=== PATIENT | female | born 1990 | race Caucasian/White ===

== ENCOUNTER 2017-10-22 21:00 | Emergency (ER) | payer OTHER ==
[2017-10-22] MEDS ORDERED: TORAdol 30 mg Injection IV ONE (22:19)
[2017-10-22 22:27] LABS: BASOPHIL % 0.1 % (0.0-0.4); Basophil (Absolute #) 0.01 (0-0.4); Eosinophil (Absolute #) 0.15 (0-0.5); Granulocyte Absolute (ANC) 11.23 (1.4-6.9); Granulocytes % 72.9 % (36.0-66.0); Hematocrit 40.2 % (35-47); Hemoglobin 13.2 gm/dl (12.0-16.0); Lymphocyte (Absolute #) 3.37 (1.0-4.6); Lymphocytes % 21.9 % (24.0-44.0); Mean Cell Volume 83.4 fl (78-100); Mean Corpuscular Hemoglobin 27.4 pg (26-32); Mean Corpuscular Hgb Concent. 32.8 g/dl (32-36); Mean Platelet Volume 9.2 fl (6-9.5); Monocyte (Absolute #) 0.63 (0.0-1.3); Monocytes % 4.1 % (0.0-12.0); Platelet Count 392 K/mm3 (150-450); Red Blood Count 4.82 M/mm3 (4.1-5.4); Red Cell Distribution Width 14.5 % (11.5-14.0); White Blood Count 15.4 K/mm3 (4.0-10.5)
[2017-10-22 22:31] LABS: ANION GAP 18.2 MEQ/L (5-15); BLOOD UREA NITROGEN 20 mg/dL (7-17); CHLORIDE 105 mmol/L (98-107); Calcium 10.1 mg/dL (8.4-10.2); Carbon Dioxide 23 mmol/L (22-30); Creatinine 1 0.91 mg/dL (0.52-1.04); Glucose 175 mg/dL (74-106); Potassium 4.2 mmol/L (3.5-5.1); SODIUM 142 mmol/L (137-145)
--- NOTE | 2017-10-22 22:31 | ERPHSYRPT ---
- History of Present Illness Time Seen by Provider: 10/22/17 22:15 Source: patient Exam Limitations: no limitations Patient Subjective Stated Complaint: PT CO LLQ AND FLANK PAIN; STARTED IN HER L LOWER BACK EARLIER THIS PM; STATES IT FEELS LIKE A KIDNEY STONE ON THE MOVE; HAS HO STONE APPROX 6 YEARS AGO AND PAIN SIMILAR TO THEN. Triage Nursing Assessment: PT A&O X3; SKIN P, W, & D; AMBULATED TO ROOM PER SELF ; FAMILY AT BEDSIDE. Physician History: patient with history of previous kidney stone, who presents with left flank pain that started at 5 PM today. Patient states symptoms feel similar to previous kidney stone. Patient describe pain as sharp, constant and radiates to the left lower quadrant. Patient also with mild nausea but no vomiting, fever, chills or diaphoresis Timing/Duration: today (5 PM) Method of Injury: other (no injury) Quality: sharp Back Pain Location: paraspinous muscles Severity of Pain-Max: moderate Severity of Pain-Current: mild (x) Modifying Factors: Improves With: nothing Associated Symptoms: nausea, lower back pain (left-sided), No fever, No chills, No sweating, No urinary incontinence, No vomiting, No problems urinating, No light-headedness, No numbness in legs/feet, No weakness, No sensory/motor loss, No tingling in legs/feet, No muscle spasms Previous symptoms: same symptoms as today (previous kidney stone) Allergies/Adverse Reactions: Penicillins Allergy (Intermediate, Verified 10/22/17 21:25) Hives cefdinir [From Omnicef] Allergy (Mild, Verified 10/22/17 21:25) Hives Home Medications: Metformin HCl [Metformin HCl ER] 500 mg PO BID 10/22/17 [History] Hx Tetanus, Diphtheria Vaccination/Date Given: Yes Hx Influenza Vaccination/Date Given: No Hx Pneumococcal Vaccination/Date Given: No Immunizations Up to Date: No - Review of Systems Constitutional: No Symptoms, No Fever, No Chills Eyes: No Symptoms Ears, Nose, & Throat: No Symptoms Respiratory: No Symptoms, No Cough, No Dyspnea Cardiac: No Symptoms, No Chest Pain, No Edema, No Syncope Abdominal/Gastrointestinal: Abdominal Pain (left lower quadrant), No Nausea, No Vomiting, No Diarrhea Genitourinary Symptoms: No Symptoms, No Dysuria Musculoskeletal: Back Pain (left flank pain), No Neck Pain Skin: No Symptoms, No Rash Neurological: No Symptoms, No Dizziness, No Focal Weakness, No Sensory Changes Psychological: No Symptoms Endocrine: No Symptoms Hematologic/Lymphatic: No Symptoms Immunological/Allergic: No Symptoms All Other Systems: Reviewed and Negative - Past Medical History Pertinent Past Medical History: No Musculoskeletal History: No Pertinent History - Past Surgical History Past Surgical History: Yes Genitourinary: No Pertinent History Female Surgical History: No Pertinent History Other Surgical History: TONSILS - Social History Smoking Status: Never smoker Exposure to second hand smoke: No Drug Use: none Patient Lives Alone: No - Female History Hx Last Menstrual Period: 10/08/2017 Hx Now: No - Nursing Vital Signs Nursing Vital Signs: Initial Vital Signs Temperature 98.5 F 10/22/17 21:18 Pulse Rate 102 H 10/22/17 21:18 Respiratory Rate 18 10/22/17 21:18 Blood Pressure 144/95 10/22/17 21:18 O2 Sat by Pulse Oximetry 97 10/22/17 21:18 Pain Scale Pain Intensity 8 - Physical Exam General Appearance: no apparent distress, alert Eye Exam: PERRL/EOMI, eyes nml inspection Neck Exam: normal inspection, non-tender, supple, full range of motion, No meningismus, No midline tenderness Respiratory Exam: normal breath sounds, lungs clear, No respiratory distress Cardiovascular Exam: regular rate/rhythm, normal heart sounds Gastrointestinal Exam: soft, normal bowel sounds, No tenderness, No distention, No mass Pelvic Exam: not done Back Exam: CVA tenderness (mild left sided) Extremity Exam: normal inspection, normal range of motion, No calf tenderness, No pedal edema Peripheral Pulses: dorsalis-pedis (R): 2+, dorsalis-pedis (L): 2+ Neurologic Exam: alert, oriented x 3, cooperative, call center trainer II-XII nml as tested, normal mood/affect, nml station & gait, sensation nml, No motor deficits Skin Exam: normal color, warm, dry, No rash SpO2 Interpretation: normal SpO2: 97 Oxygen Delivery: Room Air - Course Nursing assessment & vital signs reviewed: Yes - CT Exams Abdomen/Pelvis CT Interpretation: Tele-radiologist Report, Other (large R ovarian cyst 22 X 12 cm, no obstructing kidney stones) Ordered Tests: Active Orders 24 hr Category Date Time Status Clean Catch Urine Specimen STAT Care 10/23/17 00:00 Active IV Insertion STAT Care 10/22/17 22:19 Active ABDOMEN AND PELVIS W/0 CONTRAS [CT] Stat Exams 10/22/17 22:21 Taken CHEST 1 VIEW (PORTABLE) Stat Exams 10/23/17 00:01 Stop Req BMP Stat Lab 10/22/17 22:19 Completed CBC W DIFF Stat Lab 10/22/17 22:19 Completed CULTURE,URINE Stat Lab 10/22/17 22:47 Received HCG,QUALITATIVE URINE Stat Lab 10/22/17 22:47 Completed UA W/ MICROSCOPIC Stat Lab 10/22/17 22:47 Completed UA W/RFX UR CULTURE Stat Lab 10/23/17 00:01 Uncollected Urine Triage Profile Stat Lab 10/22/17 22:47 Completed Medication Summary Generic Name Dose Route Start Last Admin Trade Name Freq PRN Reason Stop Dose Admin Morphine Sulfate 4 mg 10/23/17 00:41 Morphine Sulfate 4 Mg Inj IV 10/23/17 00:42 STAT ONE Discontinued Medications Generic Name Dose Route Start Last Admin Trade Name Freq PRN Reason Stop Dose Admin Ketorolac Tromethamine 30 mg 10/22/17 22:19 10/22/17 22:49 Toradol 30 Mg Injection IV 10/22/17 22:20 30 mg STAT ONE Administration Ketorolac Tromethamine Confirm 10/22/17 22:45 Toradol 30 Mg Injection Administered 10/22/17 22:46 Dose 30 mg .ROUTE .STK-MED ONE Morphine Sulfate Confirm 10/23/17 00:01 Morphine Sulfate 4 Mg Inj Administered 10/23/17 00:02 Dose 4 mg .ROUTE .STK-MED ONE Morphine Sulfate 4 mg 10/23/17 00:07 10/23/17 00:10 Morphine Sulfate 4 Mg Inj IV 10/23/17 00:08 4 mg STAT ONE Administration Lab/Rad Data: Laboratory Result Diagrams 10/22/17 22:19 10/22/17 22:19 Laboratory Results 10/22/17 10/22/17 10/22/17 Range/Units 22:47 22:47 22:47 WBC (4.0-10.5) K/mm3 RBC (4.1-5.4) M/mm3 Hgb (12.0-16.0) gm/dl Hct (35-47) % MCV (78-100) fl MCH (26-32) pg MCHC (32-36) g/dl RDW (11.5-14.0) % Plt Count (150-450) K/mm3 MPV (6-9.5) fl Gran % (36.0-66.0) % Eos # (Auto) (0-0.5) Absolute Lymphs (auto) (1.0-4.6) Absolute Monos (auto) (0.0-1.3) Lymphocytes % (24.0-44.0) % Monocytes % (0.0-12.0) % Eosinophils % (0.00-5.0) % Basophils % (0.0-0.4) % Absolute Granulocytes (1.4-6.9) Basophils # (0-0.4) Sodium (137-145) mmol/L Potassium (3.5-5.1) mmol/L Chloride (98-107) mmol/L Carbon Dioxide (22-30) mmol/L Anion Gap (5-15) MEQ/L BUN (7-17) mg/dL Creatinine (0.52-1.04) mg/dL Estimated GFR ML/MIN Glucose (74-106) mg/dL Calcium (8.4-10.2) mg/dL Ur Collection Type VOID Urine Color ORANGE (YELLOW) Urine Appearance HAZY (CLEAR) Urine pH 5.0 (5-6) Ur Specific [place] 2.025 (1.005-1.025) Urine Protein COLOR INTERFERENCE (Negative) Urine Ketones COLOR INTERFERENCE (NEGATIVE) Urine Blood COLOR INTERFERENCE (0-5) Nicola/ul Urine Nitrite COLOR INTERFERENCE (NEGATIVE) Urine Bilirubin COLOR INTERFERENCE (NEGATIVE) Urine Urobilinogen COLOR INTERFERENCE (0-1) mg/dL Ur Leukocyte Esterase COLOR INTERFERENCE (NEGATIVE) Urine Microscopic RBC 15-25 (0-2) /HPF Urine Microscopic WBC 2-5 (0-5) /HPF Ur Epithelial Cells FEW (FEW) /HPF Urine Bacteria FEW (NEGATIVE) /HPF Urine Mucus SLIGHT (NEGATIVE) /HPF Urine Culture Reflexed YES (NO) Urine Glucose COLOR INTERFERENCE (NEGATIVE) mg/dL Urine HCG, Qual NEGATIVE (Negative) Urine Opiates Level NEGATIVE (NEGATIVE) Ur Methadone NEGATIVE (NEGATIVE) Urine Barbiturates NEGATIVE (NEGATIVE) Ur Phencyclidine (PCP) NEGATIVE (NEGATIVE) Urine Amphetamine NEGATIVE (NEGATIVE) U Benzodiazepine Level NEGATIVE (NEGATIVE) Urine Cocaine NEGATIVE (NEGATIVE) Urine Marijuana (THC) NEGATIVE (NEGATIVE) Specimen Received 10/22 229910/22/17 10/22/17 Range/Units 22:19 22:19 WBC 15.4 H (4.0-10.5) K/mm3 RBC 4.82 (4.1-5.4) M/mm3 Hgb 13.2 (12.0-16.0) gm/dl Hct 40.2 (35-47) % MCV 83.4 (78-100) fl MCH 27.4 (26-32) pg MCHC 32.8 (32-36) g/dl RDW 14.5 H (11.5-14.0) % Plt Count 392 (150-450) K/mm3 MPV 9.2 (6-9.5) fl Gran % 72.9 H (36.0-66.0) % Eos # (Auto) 0.15 (0-0.5) Absolute Lymphs (auto) 3.37 (1.0-4.6) Absolute Monos (auto) 0.63 (0.0-1.3) Lymphocytes % 21.9 L (24.0-44.0) % Monocytes % 4.1 (0.0-12.0) % Eosinophils % 1.0 (0.00-5.0) % Basophils % 0.1 (0.0-0.4) % Absolute Granulocytes 11.23 H (1.4-6.9) Basophils # 0.01 (0-0.4) Sodium 142 (137-145) mmol/L Potassium 4.2 (3.5-5.1) mmol/L Chloride 105 (98-107) mmol/L Carbon Dioxide 23 (22-30) mmol/L Anion Gap 18.2 H (5-15) MEQ/L BUN 20 H (7-17) mg/dL Creatinine 0.91 (0.52-1.04) mg/dL Estimated GFR > 60.0 ML/MIN Glucose 175 H (74-106) mg/dL Calcium 10.1 (8.4-10.2) mg/dL Ur Collection Type Urine Color (YELLOW) Urine Appearance (CLEAR) Urine pH (5-6) Ur Specific [place] (1.005-1.025) Urine Protein (Negative) Urine Ketones (NEGATIVE) Urine Blood (0-5) Nicola/ul Urine Nitrite (NEGATIVE) Urine Bilirubin (NEGATIVE) Urine Urobilinogen (0-1) mg/dL Ur Leukocyte Esterase (NEGATIVE) Urine Microscopic RBC (0-2) /HPF Urine Microscopic WBC (0-5) /HPF Ur Epithelial Cells (FEW) /HPF Urine Bacteria (NEGATIVE) /HPF Urine Mucus (NEGATIVE) /HPF Urine Culture Reflexed (NO) Urine Glucose (NEGATIVE) mg/dL Urine HCG, Qual (Negative) Urine Opiates Level (NEGATIVE) Ur Methadone (NEGATIVE) Urine Barbiturates (NEGATIVE) Ur Phencyclidine (PCP) (NEGATIVE) Urine Amphetamine (NEGATIVE) U Benzodiazepine Level (NEGATIVE) Urine Cocaine (NEGATIVE) Urine Marijuana (THC) (NEGATIVE) Specimen Received - Progress Progress: improved Progress Note: 10/23/17 00:43 Pt. given Morphine/Toradol for pain along with IVF's. Informed pt. about large ovarian cyst and need to get evaluated by her WAITER/WAITRESS CAPTAIN 10/23/17 00:44 Counseled pt/family regarding: lab results, diagnosis, rad results - Departure Time of Disposition: 00:44 Departure Disposition: Home Clinical Impression: Right ovarian cyst Condition: Stable Critical Care Time: No Referrals: HAYLEY TRAVIS NP [Primary Care Provider] - Instructions: Ovarian Cysts, Acute Abdomen (Belly Pain), Adult (DC) Additional Instructions: RX: [place] 5/325, #12 May take Motrin 800 mg every 8 hours with food for pain/discomfort. Follow-up with your WAITER/WAITRESS CAPTAIN in 2-3 days. Return for worse abdominal pain, fever, vomiting, dizziness, weakness or any problems Prescriptions: Hydrocodone Bit/Acetaminophen [[place] 5-325 Tablet] 1 each PO Q6H PRN PRN #12 tablet MDD 6 PRN Reason: Pain
[2017-10-22] MEDS ORDERED: TORAdol 30 mg Injection ONE (22:45)
[2017-10-22 23:09] LABS: Amphetamine,Urine NEGATIVE (NEGATIVE); Barbiturate,Urine NEGATIVE (NEGATIVE); Benzodiazepine,Urine NEGATIVE (NEGATIVE); Cocaine,Urine NEGATIVE (NEGATIVE); Methadone,Urine NEGATIVE (NEGATIVE); Opiate,Urine NEGATIVE (NEGATIVE); PCP,Urine NEGATIVE (NEGATIVE); THC,Urine NEGATIVE (NEGATIVE)
[2017-10-22 23:10] LABS: Appearance HAZY (CLEAR)
[2017-10-22 23:11] LABS: Bilirubin COLOR INTERFERENCE (NEGATIVE); Blood COLOR INTERFERENCE Ery/ul (0-5); Glucose COLOR INTERFERENCE mg/dL (NEGATIVE); Ketones COLOR INTERFERENCE (NEGATIVE); Leukocyte Esterase COLOR INTERFERENCE (NEGATIVE); Mucus SLIGHT /HPF (NEGATIVE); Nitrite COLOR INTERFERENCE (NEGATIVE); Protein,Urine Dip COLOR INTERFERENCE (Negative); Specific Gravity 2.025 (1.005-1.025); Urobilinogen COLOR INTERFERENCE mg/dL (0-1)
[2017-10-22 23:12] LABS: Bacteria FEW /HPF (NEGATIVE); Epithelial Cells FEW /HPF (FEW); RBC 15-25 /HPF (0-2)
[2017-10-23] MEDS ORDERED: MORPHINE SULFATE 4 MG INJ ONE ×2 (00:01→01:01)
[2017-10-23] MEDS ORDERED: MORPHINE SULFATE 4 MG INJ IV ONE ×2 (00:07→00:41)
[2017-10-23 01:33] VITALS: BP 128/62; PULSE 74; O2SAT 99
--- NOTE | 2017-10-23 10:10 | XRAY ---
Indication: Left lower quadrant flank pain. Nausea. Elevated WBC. Multiple contiguous axial images obtained through the abdomen and pelvis without contrast as ordered. Comparison: CT renal stone study March 15, 2012. Lung bases are clear. Heart is not enlarged. Stomach is distended with food. Noncontrasted stomach and bowel loops appear nonobstructed. New nonobstructing right renal microcalculus. Interval enlarging right ovary cyst today measuring 22 x 13 x 19 cm. No free fluid/air. Remaining liver, gallbladder, pancreas, spleen, adrenal glands, kidneys, ureters, bladder, uterus, and aorta appear unremarkable for noncontrast exam. Osseous structures intact with minimal degenerative changes to the spine. Impression: 1. Interval enlarging large right ovary cyst as detailed. 2. New nonobstructing right renal microcalculus. Comment: Preliminary interpretation was made by [facility]. No discrepancy. CTDI 23.68
== END 2017-10-23 00:59 | disposition home or self-care (01) ==
LOC: ED 21:00
DX: N83.201 Unspecified ovarian cyst, right side (principal); R11.0 Nausea; M54.5 Low back pain; Z87.442 Personal history of urinary calculi
CPT/HCPCS: 36000; 36415; 74176; 80048; 80307; 81000; 84703; 85025; 87086; 96374; 96375; 96376; 99284; J1885; J2270

== ENCOUNTER 2017-11-03 09:47 | Observation (INO) | payer OTHER ==
[2017-11-03] MEDS ORDERED: Zemuron 100 MG/10 ML IV ONE (09:48)
[2017-11-03] MEDS ORDERED: MARCAINE 0.5%-EPI 1:200,000 VL IJ ONE (09:48)
[2017-11-03] MEDS ORDERED: SUBLIMAZE 100 MCG/2 ML IV ONE (09:48)
[2017-11-03] MEDS ORDERED: Decadron 4 MG INJ IV ONE (09:48)
[2017-11-03] MEDS ORDERED: Naropin 0.5% 30 ML VIAL IJ ONE (09:48)
[2017-11-03] MEDS ORDERED: Zofran 4 MG/2 ML VIAL IV ONE (09:48)
[2017-11-03] MEDS ORDERED: BRIDION 200MG/2ML IV ONE (09:48)
[2017-11-03] MEDS ORDERED: Quelicin Fliptop 200 MG/10 ML IV ONE (09:48)
[2017-11-03] MEDS ORDERED: TORAdol 30 mg Injection IV ONE (09:48)
[2017-11-03] MEDS ORDERED: DIPRIVAN 200 MG/20 ML IV ONE (09:48)
[2017-11-03] MEDS ORDERED: Zofran 4 MG/2 ML VIAL IV PRN (10:14)
[2017-11-03] MEDS ORDERED: MORPHINE SULFATE 10 MG/ML IV PRN (10:14)
[2017-11-03] MEDS ORDERED: Sodium Chloride 0.9% 1000 ML 1,000 ML IV SCH (10:15)
[2017-11-03 10:37] LABS: BASOPHIL % 0.1 % (0.0-0.4); Basophil (Absolute #) 0.03 (0-0.4); Eosinophil % 0.4 % (0.00-5.0); Eosinophil (Absolute #) 0.08 (0-0.5); Granulocytes % 80.5 % (36.0-66.0); Hematocrit 44.9 % (35-47); Hemoglobin 14.8 gm/dl (12.0-16.0); Lymphocyte (Absolute #) 2.93 (1.0-4.6); Lymphocytes % 14.5 % (24.0-44.0); Mean Cell Volume 82.7 fl (78-100); Mean Platelet Volume 8.9 fl (6-9.5); Monocyte (Absolute #) 0.91 (0.0-1.3); Monocytes % 4.5 % (0.0-12.0); Platelet Count 407 K/mm3 (150-450); Red Blood Count 5.43 M/mm3 (4.1-5.4); Red Cell Distribution Width 14.5 % (11.5-14.0); White Blood Count 20.2 K/mm3 (4.0-10.5)
[2017-11-03 10:38] LABS: Mean Corpuscular Hemoglobin 27.2 pg (26-32)
[2017-11-03 10:38] LABS: Lactic Acid 1.9 (0.4-2.0)
[2017-11-03] MEDS ORDERED: DILAUDID 2 MG INJECTION IV ONE (10:45)
[2017-11-03 10:55] LABS: ALBUMIN 4.6 g/dL (3.5-5.0); ALKALINE PHOSPHATASE 76 U/L (38-126); ANION GAP 18.1 MEQ/L (5-15); BLOOD UREA NITROGEN 13 mg/dL (7-17); CHLORIDE 103 mmol/L (98-107); Carbon Dioxide 25 mmol/L (22-30); Creatinine 1 0.62 mg/dL (0.52-1.04); Glucose 124 mg/dL (74-106); Potassium 4.4 mmol/L (3.5-5.1); SGOT/AST 22 U/L (14-36); SGPT/ALT 35 U/L (0-35); SODIUM 142 mmol/L (137-145); Total Protein 7.2 g/dL (6.3-8.2)
[2017-11-03] MEDS: Sodium Chloride 0.9% 1000 ML 1,000 ML IV SCH ×2 (11:12→20:16)
[2017-11-03] MEDS: DILAUDID 1 MG/1ML PCA IV PRN (11:43)
[2017-11-03] MEDS ORDERED: Levofloxacin 500MG/100ML D5W 500 MG/100 ML BAG IV SCH (13:15)
[2017-11-03] MEDS ORDERED: CLINDAMYCIN-D5W 900 MG/50 ML*** 900 MG/50 ML BAG IV SCH (13:30)
[2017-11-03] MEDS ORDERED: KEFZOL 1 GM/50 ML PREMIX** 1 GM/50 ML IVPB IV SCH (14:00)
[2017-11-03] MEDS: FLAGYL 500 MG IVPB 500 MG/100 ML BAG IV SCH ×2 (14:04→22:11)
[2017-11-03 15:35] LABS: Appearance CLEAR (CLEAR); Bilirubin NEGATIVE (NEGATIVE); Blood NEGATIVE Ery/ul (0-5); Glucose NEGATIVE (NEGATIVE); Ketones NEGATIVE (NEGATIVE); Leukocyte Esterase NEGATIVE (NEGATIVE); Nitrite NEGATIVE (NEGATIVE); Protein,Urine Dip NEGATIVE (Negative); Urobilinogen NORMAL mg/dL (0-1)
--- NOTE | 2017-11-03 15:56 | PCM.HP ---
History of Present Illness - Chief Complaint Chief Complaint: Abdominal pain, ovarian cyst History of Present Illness: is a 26 year old female pt of mine from [facility] with a large ovarian cyst who comes in today with abdominal pain. She went to the ER on Oct 22 complaining of L sided abd pain and was found on CT abd/pelvis to have a very large (22cm in one dimension) ovarian cyst. She was told to follow up wiht me, which she did in office on 10/26/17. Ultrasound was also done, which agreed wiht CT scan. She saw Dr. Crowell the following Tuesday in clinic and is scheduled to have surgery with him on 11/07/17. Yesterday she started having abdominal pain and the pain kept her up off and on all night. she did have some vomiting , no fever, no diarrhea. The pain was "11"/10. This morning she contacted the office and was directed admitted by me for pain control. She was found to have a WBC count of 20,000 and was placed on IV flagyl and levaquin. She was given IV morphine which did not help the pain, then started on a dilaudid CARBONATOR which has taken the pain away. Pt is NPO and awaiting surgery consultation. - Review of Systems Constitutional: No Fever Abdominal/Gastrointestinal: Abdominal Pain, Nausea, Vomiting All Other Systems: Reviewed and Negative Medications & Allergies Home Medications: Home Medication List Metformin HCl [Metformin HCl ER] 500 mg PO BID 10/22/17 [History Confirmed 11/03] Hydrocodone Bit/Acetaminophen [[place] 5-325 Tablet] 1 each PO Q6H PRN PRN #12 tablet MDD 6 10/23/17 [Rx Confirmed 11/03/17] Allergies/Adverse Reactions: Allergies Allergy/AdvReac Type Severity Reaction Status Date / Time Penicillins Allergy Intermediate Hives Verified 11/01/17 13:14 cefdinir [From Omnicef] Allergy Mild Hives Verified 11/01/17 13:14 - Past Medical History Past Medical History: Yes Neurological History: No Pertinent History ENT History: No Pertinent History Cardiac History: No Pertinent History Respiratory History: No Pertinent History Endocrine Medical History: Other Musculoskelatal History: No Pertinent History GI Medical History: No Pertinent History History: Other Pyscho-Social History: No Pertinent History Reproductive Disorders: Other Comment: states "lab up,maybe insulin resistant,so they gave me metformin", Hx of ovarian cyst. Hx of kidney stones - Female History Hx Last Menstrual Period: 10/02/17 Are you now?: No - Past Surgical History Past Surgical History: No Neuro Surgical History: No Pertinent History Cardiac History: No Pertinent History Respiratory Surgery: No Pertinent History GI Surgical History: No Pertinent History Genitourinary Surgical Hx: No Pertinent History Musculskeletal Surgical Hx: No Pertinent History Female Surgical History: No Pertinent History Other Surgical History: TONSILS - Social History Smoking Status: Never smoker Exposure to second hand smoke: No Alcohol: None Drug Use: none - Physical Exam Vital Signs: Vital Signs - 24 hr Temp Pulse Resp BP Pulse Ox 11/03/17 12:00 97 11/03/17 11:23 98.3 F 105 H 17 135/84 97 11/03/17 09:55 98.3 F 105 H 17 135/84 97 General Appearance: no apparent distress, alert, obese Neurologic Exam: oriented x 3, cooperative Eye Exam: eyes nml inspection Ears, Nose, Throat Exam: moist mucous membranes Respiratory Exam: normal breath sounds, lungs clear, No crackles/rales, No rhonchi, No wheezing Cardiovascular Exam: regular rate/rhythm, normal heart sounds, No murmur Gastrointestinal/Abdomen Exam: soft, normal bowel sounds, mass (large firm mass palpable in RUQ, RLQ), No tenderness, No guarding, No rebound Back Exam: normal inspection, No rash Extremity Exam: normal inspection, No pedal edema, No swelling Skin Exam: normal color, warm, dry, No rash Results - Labs Lab/Micro Results: Lab Results-Last 24 Hours 11/03/17 11/03/17 11/03/17 Range/Units 05:15 10:15 10:15 WBC 20.2 H (4.0-10.5) K/mm3 RBC 5.43 H (4.1-5.4) M/mm3 Hgb 14.8 (12.0-16.0) gm/dl Hct 44.9 (35-47) % MCV 82.7 (78-100) fl MCH 27.2 (26-32) pg MCHC 33.0 (32-36) g/dl RDW 14.5 H (11.5-14.0) % Plt Count 407 (150-450) K/mm3 MPV 8.9 (6-9.5) fl Gran % 80.5 H (36.0-66.0) % Eos # (Auto) 0.08 (0-0.5) Absolute Lymphs (auto) 2.93 (1.0-4.6) Absolute Monos (auto) 0.91 (0.0-1.3) Lymphocytes % 14.5 L (24.0-44.0) % Monocytes % 4.5 (0.0-12.0) % Eosinophils % 0.4 (0.00-5.0) % Basophils % 0.1 (0.0-0.4) % Absolute Granulocytes 16.20 H (1.4-6.9) Basophils # 0.03 (0-0.4) Sodium 142 (137-145) mmol/L Potassium 4.4 (3.5-5.1) mmol/L Chloride 103 (98-107) mmol/L Carbon Dioxide 25 (22-30) mmol/L Anion Gap 18.1 H (5-15) MEQ/L BUN 13 (7-17) mg/dL Creatinine 0.62 (0.52-1.04) mg/dL Estimated GFR > 60.0 ML/MIN Glucose 124 H (74-106) mg/dL Lactic Acid (0.4-2.0) Calcium 10.0 (8.4-10.2) mg/dL Total Bilirubin 0.50 (0.2-1.3) mg/dL AST 22 (14-36) U/L ALT 35 (0-35) U/L Alkaline Phosphatase 76 (38-126) U/L Serum Total Protein 7.2 (6.3-8.2) g/dL Albumin 4.6 (3.5-5.0) g/dL Ur Collection Type CLEAN CATCH Urine Color YELLOW (YELLOW) Urine Appearance CLEAR (CLEAR) Urine pH 6.0 (5-6) Ur Specific [place] 1.020 (1.005-1.025) Urine Protein NEGATIVE (Negative) Urine Ketones NEGATIVE (NEGATIVE) Urine Blood NEGATIVE (0-5) Nicola/ul Urine Nitrite NEGATIVE (NEGATIVE) Urine Bilirubin NEGATIVE (NEGATIVE) Urine Urobilinogen NORMAL (0-1) mg/dL Ur Leukocyte Esterase NEGATIVE (NEGATIVE) Urine Glucose NEGATIVE (NEGATIVE) mg/dL Specimen Received 11/03/17 1515 11/03/17 Range/Units 10:19 WBC (4.0-10.5) K/mm3 RBC (4.1-5.4) M/mm3 Hgb (12.0-16.0) gm/dl Hct (35-47) % MCV (78-100) fl MCH (26-32) pg MCHC (32-36) g/dl RDW (11.5-14.0) % Plt Count (150-450) K/mm3 MPV (6-9.5) fl Gran % (36.0-66.0) % Eos # (Auto) (0-0.5) Absolute Lymphs (auto) (1.0-4.6) Absolute Monos (auto) (0.0-1.3) Lymphocytes % (24.0-44.0) % Monocytes % (0.0-12.0) % Eosinophils % (0.00-5.0) % Basophils % (0.0-0.4) % Absolute Granulocytes (1.4-6.9) Basophils # (0-0.4) Sodium (137-145) mmol/L Potassium (3.5-5.1) mmol/L Chloride (98-107) mmol/L Carbon Dioxide (22-30) mmol/L Anion Gap (5-15) MEQ/L BUN (7-17) mg/dL Creatinine (0.52-1.04) mg/dL Estimated GFR ML/MIN Glucose (74-106) mg/dL Lactic Acid 1.9 (0.4-2.0) Calcium (8.4-10.2) mg/dL Total Bilirubin (0.2-1.3) mg/dL AST (14-36) U/L ALT (0-35) U/L Alkaline Phosphatase (38-126) U/L Serum Total Protein (6.3-8.2) g/dL Albumin (3.5-5.0) g/dL Ur Collection Type Urine Color (YELLOW) Urine Appearance (CLEAR) Urine pH (5-6) Ur Specific [place] (1.005-1.025) Urine Protein (Negative) Urine Ketones (NEGATIVE) Urine Blood (0-5) Nicola/ul Urine Nitrite (NEGATIVE) Urine Bilirubin (NEGATIVE) Urine Urobilinogen (0-1) mg/dL Ur Leukocyte Esterase (NEGATIVE) Urine Glucose (NEGATIVE) mg/dL Specimen Received Assessment/Plan (1) Right ovarian cyst Current Visit: No Status: Acute Assessment & Plan: Await surgery, thank you. Code(s): N83.201 - UNSPECIFIED OVARIAN CYST, RIGHT SIDE (2) Leukocytosis Current Visit: Yes Status: Acute Qualifiers: Leukocytosis type: unspecified Qualified Code(s): D72.829 - Elevated white blood cell count, unspecified Assessment & Plan: On IV antibiotics, flagyl and levaquin (allergic to PCN and cephalosporins) day #1. Code(s): D72.829 - ELEVATED WHITE BLOOD CELL COUNT, UNSPECIFIED
[2017-11-03] MEDS: Levofloxacin 500MG/100ML D5W 500 MG/100 ML BAG IV SCH (16:45)
--- NOTE | 2017-11-03 16:48 | XRAY ---
Indication: Left abdominal pain. CT proven 22 cm right cystic mass. Comparison: None 2 views of the abdomen demonstrates nonspecific nonobstructive bowel gas pattern with known large right cystic mass displacing bowel loops. Remaining solid organs and osseous structures unremarkable.
[2017-11-03] MEDS: Lactated Ringers 1,000 ML IV SCH (17:21)
[2017-11-04] MEDS: Sodium Chloride 0.9% 1000 ML 1,000 ML IV SCH (04:50)
[2017-11-04] MEDS: FLAGYL 500 MG IVPB 500 MG/100 ML BAG IV SCH ×2 (05:28→13:10)
[2017-11-04 05:45] LABS: Hematocrit 35.9 % (35-47); Hemoglobin 11.6 gm/dl (12.0-16.0); Mean Cell Volume 85.3 fl (78-100); Mean Corpuscular Hgb Concent. 32.3 g/dl (32-36); Mean Platelet Volume 8.3 fl (6-9.5); Platelet Count 278 K/mm3 (150-450); Red Blood Count 4.21 M/mm3 (4.1-5.4); Red Cell Distribution Width 14.5 % (11.5-14.0); White Blood Count 14.5 K/mm3 (4.0-10.5)
[2017-11-04 05:59] LABS: Mean Corpuscular Hemoglobin 27.5 pg (26-32)
[2017-11-04 06:07] LABS: ALBUMIN 3.5 g/dL (3.5-5.0); ALKALINE PHOSPHATASE 56 U/L (38-126); ANION GAP 11.1 MEQ/L (5-15); BLOOD UREA NITROGEN 13 mg/dL (7-17); CHLORIDE 102 mmol/L (98-107); Calcium 8.6 mg/dL (8.4-10.2); Carbon Dioxide 28 mmol/L (22-30); Creatinine 1 0.72 mg/dL (0.52-1.04); Glucose 111 mg/dL (74-106); Potassium 4.3 mmol/L (3.5-5.1); SGOT/AST 12 U/L (14-36); SGPT/ALT 23 U/L (0-35); SODIUM 137 mmol/L (137-145); Total Protein 5.7 g/dL (6.3-8.2)
[2017-11-04] MEDS: DILAUDID 1 MG/1ML PCA IV PRN (08:00)
--- NOTE | 2017-11-04 08:09 | PCM.NOTE ---
Date and Time: 11/04/17806 Subjective Assessment: patient reports her pain is well controlled, no new complaints. no fever overnight, awaiting surgery for large left ovarian cyst Objective Exam General Appearance: no apparent distress, alert, obese Respiratory Exam: normal breath sounds Cardiovascular Exam: regular rate/rhythm, normal heart sounds Gastrointestinal/Abdomen Exam: normal bowel sounds, tenderness (LLQ), mass, No distention, No guarding, No rebound Extremity Exam: normal inspection, normal range of motion OBJECTIVE DATA Vital Signs: Vital Signs - 24 hr Temp Pulse Resp BP Pulse Ox 11/04/17 07:05 99 F 87 20 118/67 98 11/04/17 06:00 95 11/04/17 04:00 98.8 F 89 18 116/56 96 11/04/17 02:00 94 L 11/03/17 23:57 99.1 F 89 16 112/62 94 L 11/03/17 22:00 95 11/03/17 20:00 98.6 F 96 H 17 129/74 93 L 11/03/17 16:49 97 11/03/17 16:00 98.8 F 108 H 18 131/71 93 L 11/03/17 15:43 97 11/03/17 12:00 97 11/03/17 11:23 98.3 F 105 H 17 135/84 97 11/03/17 09:55 98.3 F 105 H 17 135/84 97 Pain Assessment - Last Documented Pain Intensity 4 [facility] Intake and Output: Intake & Output 11/01/17 11/02/17 11/03/17 11/04/17 11:59 11:59 11:59 11:59 Intake Total 2036 Output Total 1400 Balance 636 Weight 119.5 kg Lab Results: Lab Results-Last 24 Hours 11/03/17 11/03/17 11/03/17 Range/Units 05:15 10:15 10:15 WBC 20.2 H (4.0-10.5) K/mm3 RBC 5.43 H (4.1-5.4) M/mm3 Hgb 14.8 (12.0-16.0) gm/dl Hct 44.9 (35-47) % MCV 82.7 (78-100) fl MCH 27.2 (26-32) pg MCHC 33.0 (32-36) g/dl RDW 14.5 H (11.5-14.0) % Plt Count 407 (150-450) K/mm3 MPV 8.9 (6-9.5) fl Gran % 80.5 H (36.0-66.0) % Eos # (Auto) 0.08 (0-0.5) Absolute Lymphs (auto) 2.93 (1.0-4.6) Absolute Monos (auto) 0.91 (0.0-1.3) Lymphocytes % 14.5 L (24.0-44.0) % Monocytes % 4.5 (0.0-12.0) % Eosinophils % 0.4 (0.00-5.0) % Basophils % 0.1 (0.0-0.4) % Absolute Granulocytes 16.20 H (1.4-6.9) Basophils # 0.03 (0-0.4) Sodium 142 (137-145) mmol/L Potassium 4.4 (3.5-5.1) mmol/L Chloride 103 (98-107) mmol/L Carbon Dioxide 25 (22-30) mmol/L Anion Gap 18.1 H (5-15) MEQ/L BUN 13 (7-17) mg/dL Creatinine 0.62 (0.52-1.04) mg/dL Estimated GFR > 60.0 ML/MIN Glucose 124 H (74-106) mg/dL Lactic Acid (0.4-2.0) Calcium 10.0 (8.4-10.2) mg/dL Total Bilirubin 0.50 (0.2-1.3) mg/dL AST 22 (14-36) U/L ALT 35 (0-35) U/L Alkaline Phosphatase 76 (38-126) U/L Serum Total Protein 7.2 (6.3-8.2) g/dL Albumin 4.6 (3.5-5.0) g/dL Ur Collection Type CLEAN CATCH Urine Color YELLOW (YELLOW) Urine Appearance CLEAR (CLEAR) Urine pH 6.0 (5-6) Ur Specific [place] 1.020 (1.005-1.025) Urine Protein NEGATIVE (Negative) Urine Ketones NEGATIVE (NEGATIVE) Urine Blood NEGATIVE (0-5) Nicola/ul Urine Nitrite NEGATIVE (NEGATIVE) Urine Bilirubin NEGATIVE (NEGATIVE) Urine Urobilinogen NORMAL (0-1) mg/dL Ur Leukocyte Esterase NEGATIVE (NEGATIVE) Urine Glucose NEGATIVE (NEGATIVE) mg/dL Specimen Received 11/03/17 1515 11/03/17 11/04/17 11/04/17 Range/Units 10:19 05:25 05:25 WBC 14.5 H (4.0-10.5) K/mm3 RBC 4.21 (4.1-5.4) M/mm3 Hgb 11.6 L (12.0-16.0) gm/dl Hct 35.9 (35-47) % MCV 85.3 (78-100) fl MCH 27.5 (26-32) pg MCHC 32.3 (32-36) g/dl RDW 14.5 H (11.5-14.0) % Plt Count 278 (150-450) K/mm3 MPV 8.3 (6-9.5) fl Gran % (36.0-66.0) % Eos # (Auto) (0-0.5) Absolute Lymphs (auto) (1.0-4.6) Absolute Monos (auto) (0.0-1.3) Lymphocytes % (24.0-44.0) % Monocytes % (0.0-12.0) % Eosinophils % (0.00-5.0) % Basophils % (0.0-0.4) % Absolute Granulocytes (1.4-6.9) Basophils # (0-0.4) Sodium 137 (137-145) mmol/L Potassium 4.3 (3.5-5.1) mmol/L Chloride 102 (98-107) mmol/L Carbon Dioxide 28 (22-30) mmol/L Anion Gap 11.1 (5-15) MEQ/L BUN 13 (7-17) mg/dL Creatinine 0.72 (0.52-1.04) mg/dL Estimated GFR > 60.0 ML/MIN Glucose 111 H (74-106) mg/dL Lactic Acid 1.9 (0.4-2.0) Calcium 8.6 (8.4-10.2) mg/dL Total Bilirubin 0.70 (0.2-1.3) mg/dL AST 12 L (14-36) U/L ALT 23 (0-35) U/L Alkaline Phosphatase 56 (38-126) U/L Serum Total Protein 5.7 L (6.3-8.2) g/dL Albumin 3.5 (3.5-5.0) g/dL Ur Collection Type Urine Color (YELLOW) Urine Appearance (CLEAR) Urine pH (5-6) Ur Specific [place] (1.005-1.025) Urine Protein (Negative) Urine Ketones (NEGATIVE) Urine Blood (0-5) Nicola/ul Urine Nitrite (NEGATIVE) Urine Bilirubin (NEGATIVE) Urine Urobilinogen (0-1) mg/dL Ur Leukocyte Esterase (NEGATIVE) Urine Glucose (NEGATIVE) mg/dL Specimen Received Radiology Exams: Radiology Procedures Category Date Time Status ABDOMEN 2 VIEW Stat Exams 11/03/17 16:31 Completed Assessment/Plan (1) Leukocytosis Current Visit: Yes Status: Acute Qualifiers: Leukocytosis type: unspecified Qualified Code(s): D72.829 - Elevated white blood cell count, unspecified Assessment & Plan: on levaquin, improved today Code(s): D72.829 - ELEVATED WHITE BLOOD CELL COUNT, UNSPECIFIED (2) Right ovarian cyst Current Visit: No Status: Acute Assessment & Plan: awaiting surgical intervention, appreciate surgery input Code(s): N83.201 - UNSPECIFIED OVARIAN CYST, RIGHT SIDE
[2017-11-04] MEDS: Levofloxacin 500MG/100ML D5W 500 MG/100 ML BAG IV SCH (09:58)
[2017-11-04] MEDS ORDERED: CLINDAMYCIN-D5W 900 MG/50 ML*** 900 MG/50 ML BAG IV SCH (10:30)
[2017-11-04] MEDS ORDERED: Levofloxacin 500MG/100ML D5W 500 MG/100 ML BAG IV SCH (10:45)
[2017-11-04] MEDS: Lactated Ringers 1,000 ML IV SCH (13:10)
[2017-11-04] MEDS ORDERED: Sensorcaine 0.25% 10 ML ONE (13:24)
[2017-11-04] MEDS ORDERED: Lactated Ringers 1,000 ML IV ONE ×2 (13:24→15:10)
[2017-11-04] MEDS ORDERED: KEFZOL 1 GM ONE (13:54)
[2017-11-04] MEDS ORDERED: DILAUDID 2 MG INJECTION ONE (15:57)
[2017-11-04] MEDS ORDERED: Zofran 4 MG/2 ML VIAL IVIM PRN (17:05)
[2017-11-04] MEDS ORDERED: TYLENOL 325 MG PO PRN (17:11)
[2017-11-04] MEDS ORDERED: FEVERALL 650 MG RC PRN (17:12)
[2017-11-04 17:15] LABS: Appearance CLEAR (CLEAR); Leukocyte Esterase TRACE (NEGATIVE); Nitrite NEGATIVE (NEGATIVE)
[2017-11-04 17:16] LABS: Bacteria FEW /HPF (NEGATIVE); Bilirubin NEGATIVE (NEGATIVE); Blood TRACE NON-HEM Ery/ul (0-5); Glucose NEGATIVE (NEGATIVE); Ketones TRACE (NEGATIVE); Protein,Urine Dip NEGATIVE (Negative); RBC 0-2 /HPF (0-2); Urobilinogen NORMAL mg/dL (0-1)
[2017-11-04] MEDS: KEFZOL 1 GM/50 ML PREMIX** 1 GM/50 ML IVPB IV SCH ×2 (18:45→23:53)
[2017-11-04] MEDS: D5W/0.45NS W/ 20mEq KCl 1000 ML 1,000 ML IV SCH (18:45)
[2017-11-04] MEDS: MORPHINE SULFATE 4 MG INJ IV PRN (18:57)
[2017-11-04] MEDS: NORCO 5/325 MG PO PRN (21:09)
[2017-11-05] MEDS: MORPHINE SULFATE 4 MG INJ IV PRN (00:01)
[2017-11-05] MEDS: D5W/0.45NS W/ 20mEq KCl 1000 ML 1,000 ML IV SCH (05:00)
[2017-11-05] MEDS: NORCO 5/325 MG PO PRN ×2 (05:01→09:54)
[2017-11-05] MEDS: KEFZOL 1 GM/50 ML PREMIX** 1 GM/50 ML IVPB IV SCH (05:02)
[2017-11-05 06:12] LABS: ALKALINE PHOSPHATASE 58 U/L (38-126); ANION GAP 13.7 MEQ/L (5-15); BLOOD UREA NITROGEN 10 mg/dL (7-17); CHLORIDE 101 mmol/L (98-107); Calcium 9.4 mg/dL (8.4-10.2); Carbon Dioxide 26 mmol/L (22-30); Creatinine 1 0.58 mg/dL (0.52-1.04); Glucose 140 mg/dL (74-106); Potassium 4.4 mmol/L (3.5-5.1); SGOT/AST 14 U/L (14-36); SGPT/ALT 20 U/L (0-35); SODIUM 137 mmol/L (137-145); Total Protein 6.5 g/dL (6.3-8.2)
[2017-11-05 06:24] LABS: Basophil (Absolute #) 0 (0-0.4); Eosinophil (Absolute #) 0 (0-0.5); Granulocyte Absolute (ANC) 14.26 (1.4-6.9); Granulocytes % 84.2 % (36.0-66.0); Hematocrit 35.5 % (35-47); Hemoglobin 11.8 gm/dl (12.0-16.0); Lymphocyte (Absolute #) 1.77 (1.0-4.6); Lymphocytes % 10.5 % (24.0-44.0); Mean Cell Volume 82.8 fl (78-100); Mean Corpuscular Hemoglobin 27.5 pg (26-32); Mean Corpuscular Hgb Concent. 33.2 g/dl (32-36); Monocytes % 5.3 % (0.0-12.0); Platelet Count 300 K/mm3 (150-450); Red Blood Count 4.29 M/mm3 (4.1-5.4); Red Cell Distribution Width 14.2 % (11.5-14.0); White Blood Count 16.9 K/mm3 (4.0-10.5)
[2017-11-05] MEDS ORDERED: ENOXAPARIN SODIUM SQ SCH (10:00)
--- NOTE | 2017-11-05 10:18 | PCM.DS ---
Discharge Summary Date of Admission: 11/03/17 09:47 Admitting Physician: SAI ALLAN Consults: Consults on Case 11/03/17 10:16 Consult Surgery ROUTINE Primary Care Provider: SAI ALLAN Allergies Allergies Penicillins Allergy (Intermediate, Verified 11/01/17 13:14) [facility] cefdinir [From Omnicef] Allergy (Mild, Verified 11/01/17 13:14) [facility] Summary - Hospital Course Hospital Course: patient was admitted with a large right ovarian cyst and elevated white count, had surgery by Dr Warner on 11/04 and has done well. no problems or concerns currently, she has been cleared to go home. has had elevation of wbc but no fever and seems to be no worry of abscess currently. - Vitals & Intake/Output Vital Signs: Vital Signs Temperature 99.1 F 11/05/17 07:33 Pulse Rate 61 11/05/17 07:33 Respiratory Rate 18 11/05/17 07:33 Blood Pressure 118/58 11/05/17 07:33 O2 Sat by Pulse Oximetry 95 11/05/17 07:33 Oxygen-Last Documented O2 Percentage 2 Liters = 28% Intake & Output: Intake & Output 11/02/17 11/03/17 11/04/17 11/05/17 11:59 11:59 11:59 11:59 Intake Total 2036 1745 Output Total 1700 3650 Balance 336 -1905 Weight 119.5 kg - Lab Result Diagrams: 11/05/17 05:35 11/05/17 05:35 Lab Results-Last 24 Hrs: Lab Results-Last 24 Hours 11/04/17 11/05/17 11/05/17 Range/Units 14:00 05:35 05:35 WBC 16.9 H (4.0-10.5) K/mm3 RBC 4.29 (4.1-5.4) M/mm3 Hgb 11.8 L (12.0-16.0) gm/dl Hct 35.5 (35-47) % MCV 82.8 (78-100) fl MCH 27.5 (26-32) pg MCHC 33.2 (32-36) g/dl RDW 14.2 H (11.5-14.0) % Plt Count 300 (150-450) K/mm3 MPV 9.0 (6-9.5) fl Gran % 84.2 H (36.0-66.0) % Eos # (Auto) 0 (0-0.5) Absolute Lymphs (auto) 1.77 (1.0-4.6) Absolute Monos (auto) 0.90 (0.0-1.3) Lymphocytes % 10.5 L (24.0-44.0) % Monocytes % 5.3 (0.0-12.0) % Eosinophils % 0.0 (0.00-5.0) % Basophils % 0.0 (0.0-0.4) % Absolute Granulocytes 14.26 H (1.4-6.9) Basophils # 0 (0-0.4) Sodium 137 (137-145) mmol/L Potassium 4.4 (3.5-5.1) mmol/L Chloride 101 (98-107) mmol/L Carbon Dioxide 26 (22-30) mmol/L Anion Gap 13.7 (5-15) MEQ/L BUN 10 (7-17) mg/dL Creatinine 0.58 (0.52-1.04) mg/dL Estimated GFR > 60.0 ML/MIN Glucose 140 H (74-106) mg/dL Calcium 9.4 (8.4-10.2) mg/dL Total Bilirubin 0.30 (0.2-1.3) mg/dL AST 14 (14-36) U/L ALT 20 (0-35) U/L Alkaline Phosphatase 58 (38-126) U/L Serum Total Protein 6.5 (6.3-8.2) g/dL Albumin 4.0 (3.5-5.0) g/dL Ur Collection Type CATH Urine Color LT.YELLOW (YELLOW) Urine Appearance CLEAR (CLEAR) Urine pH 6.0 (5-6) Ur Specific [place] 1.010 (1.005-1.025) Urine Protein NEGATIVE (Negative) Urine Ketones TRACE (NEGATIVE) Urine Blood TRACE NON-HEM (0-5) Nicola/ul Urine Nitrite NEGATIVE (NEGATIVE) Urine Bilirubin NEGATIVE (NEGATIVE) Urine Urobilinogen NORMAL (0-1) mg/dL Ur Leukocyte Esterase TRACE (NEGATIVE) Urine Microscopic RBC 0-2 (0-2) /HPF Urine Bacteria FEW (NEGATIVE) /HPF Urine Glucose NEGATIVE (NEGATIVE) mg/dL Specimen Received 11/04/17 1700 - Radiology Exams Ordered Rad Exams-Entire Visit: Radiology Procedures Category Date Time Status ABDOMEN 2 VIEW Stat Exams 11/03/17 16:31 Completed - Procedures and Test Procedures and Tests throughout Hospitalization: Therapy Orders & Screens 11/04/17 16:43 Incentive Spirometry UD Comment: 10 breaths q hr [place] Diagnosis: Abdominal pain, ovarian cyst Discharge Exam General Appearance: no apparent distress, obese Neurologic Exam: alert, oriented x 3, cooperative, normal mood/affect, nml cerebellar function, sensation nml, No motor deficits Respiratory Exam: normal breath sounds, lungs clear, No respiratory distress Cardiovascular Exam: regular rate/rhythm, normal heart sounds Gastrointestinal/Abdomen Exam: normal bowel sounds, other (dressings c/d/i) Extremity Exam: normal inspection Back Exam: normal inspection Final Diagnosis/Problem List - Final Discharge Diagnosis/Problem (1) Right ovarian cyst Current Visit: No Status: Acute Assessment & Plan: s/p removal, no further tx required (2) Leukocytosis Current Visit: Yes Status: Acute Assessment & Plan: no obvious etiology, abx have been stopped. can f/u as outpt with Dr Allan - Discharge Disposition: Home, Self-Care Condition: Stable Prescriptions: No Action Metformin HCl [Metformin HCl ER] 500 mg PO BID Hydrocodone Bit/Acetaminophen [[place] 5-325 Tablet] 1 each PO Q6H PRN PRN #12 tablet MDD 6 PRN Reason: Pain Instructions: Ovarian Cyst Removal (DC) Follow up with: RADHA WARNER [COURTESY STAFF] - Call for Appointment SAI ALLAN [Primary Care Provider] - 11/11/17 10:45 am Forms: Discharge Instructions
[2017-11-05 10:41] VITALS: BP 136/71; PULSE 85; O2SAT 96
--- NOTE | 2017-11-07 10:27 | OP ---
DATE OF SURGERY: 11/04/2017 1297 PREOPERATIVE DIAGNOSES: Increased abdominal pain, large adnexal cystic mass. POSTOPERATIVE DIAGNOSIS: A 21 cm cystic adnexal mass with torsion what appeared to be ischemic ovary and tube. PROCEDURES: 1) Diagnostic laparoscopy, exploratory laparotomy, open removal right adnexal mass. 2) Laparoscopic pelvic torsion. 3) Laparoscopic peritoneal biopsy. 4) Laparoscopic diaphragmatic area peritoneal biopsies. 5) Open removal of large torsed cystic mass what appeared to be ischemic ovarian tissue and tube. SURGEON: Dr. Jonny Dinero. MEDICAL TRANSCRIBER: Dutch Malone, Medical Student III. ESTIMATED BLOOD LOSS: Minimal. INDICATIONS: As noted above. Risks and benefits explained in detail and not limited to and consent obtained. DESCRIPTION OF PROCEDURE AND FINDINGS: The patient is taken to the operating room. General anesthesia introduced. The abdomen is prepped in the usual sterile fashion. After official time out and no disagreement with planned procedure, a transverse incision made supraumbilical area. Fascia grasped pulled up. Veress needle inserted and tested with saline. Pneumoperitoneum opening pressure 0 to 15. A 5 mm bladeless port and camera were inserted without difficulty in the left upper quadrant. An additional right lower quadrant port placed as well as mid abdomen 5 mm port. There was evidence of this cystic adnexal mass coming from the left adnexa with evidence of torsion. The cystic mass was too large to remove only laparoscopically. At this time given the size of it to evaluate for potential malignancy staging biopsies were done peritoneal biopsy done, bilateral diaphragmatic surfaces, bilateral pelvic peritoneal surfaces as well as pelvic washings sent for cytology. At this point again this mass is too large to remove laparoscopically. It was felt that the pedicle was too thick to simply just staple. The torsed pedicle was right up next to the corner of the uterus. The right ovary appeared to be unremarkable at this time. It was felt unsafe to try to take this out as I had no large enough bag at this facility to take this cystic adnexal mass and what appeared to be ischemic ovary and torsion. A small midline incision was made in the lower abdomen. The wound protector placed. Careful inspection. Right ovary appeared to be okay. Torsed right at the uterus. Large clamp on either side was clamped and divided to try to get the torsion with the 0 PDS. Suture ligature used to control this pedicle. Additional 0 PDS placed in the round ligament as it was torsed up in this tissue. Good hemostasis noted. Specimen is pulled out. It was necessary to enlarge the fascial incision somewhat to allow for it to be pulled up further. Again this appeared to be benign large cyst. Laparotomy incision at the level of the umbilicus in order to decompress this simple cyst up in the wound protector. A small pinhole with Veress needle aspirating clear fluid is accomplished with suction in place and packing in place around it. There was no significant fluid spillage intra-abdominally. This allowed the adnexal cystic mass to be pulled up and passed off. Again, it did not appear to be stuck to any bowel or any other tissues at this point. It is must torsed on the adnexa. At this point the wound protector was placed and port placed through it. Copious amount of irrigation in the area until clear with sterile water and then the regular saline irrigation. Small little ooze on the round ligament on the uterus had been controlled with 0 PDS. Good hemostasis noted. Copious amount of irrigation irrigating until clear. The right ovary appeared to be viable and fine. As there are no signs of any active bleeding or other issues it was felt there was no benefit from drain placement. Port is removed. The wound protector is removed. Pneumoperitoneum decompressed. Port is removed. Fascia closed with sequential 0 looped PDS. Subcu irrigated out. Skin closed with 3-0 Vicryl and 4-0 Vicryl. Port site closed with 4-0 Vicryl. Steri-Strips and sterile dressing applied. The patient tolerated the procedure well. There were no immediate complications. Findings discussed with the family out in the waiting area, discussed pain control. I will see her back in the office in a week or so.
== END 2017-11-05 11:05 | disposition home or self-care (01) ==
LOC: MED SURG 09:47
PROVIDERS: ADMIT Family Medicine; ATTEND Family Medicine
DX: R19.09 Other intra-abdominal and pelvic swelling, mass and lump (principal); N83.201 Unspecified ovarian cyst, right side; Z87.442 Personal history of urinary calculi; D72.829 Elevated white blood cell count, unspecified; R10.9 Unspecified abdominal pain
CPT/HCPCS: 36415; 64488; 74021; 76937; 76942; 80053; 81000; 81002; 83605; 84703; 85025; 85027; 87086; 93268; 94010; 94760; J0330; J0690; J1100; J1170; J1650; J1885; J1956; J2270; J2405; J2704; J2795; J3010; L0625; A9270-GY; G0378